=== PATIENT | male | born 1980 | race Caucasian/White ===

== ENCOUNTER 2017-12-19 05:49 | Emergency (ER) | payer MEDICAID ==
[~2017-12-19] VITALS: Ht 167.6 cm; Wt 96.2 kg
[~2017-12-19 05:49] MED LIST: ALB0.5UD IH; IBUP-1985 PO; IBUP-1986 PO; NAPR-1154 PO; ONDA4TAB6 PO
[2017-12-19 06:11] VITALS: BP 126/87
[2017-12-19] MEDS ORDERED: HYDR-569 PO (16:08)
[2017-12-19] MEDS ORDERED: DOXY100C2 PO (16:08)
== END 2017-12-19 11:26 | disposition left against medical advice (07) ==
LOC: ER 05:49
DX: L02.426 Furuncle of left lower limb (principal); Z53.21 Procedure and treatment not carried out due to patient leaving prior to being seen by health care provider
CPT/HCPCS: A6266; A6449

== ENCOUNTER 2017-12-19 14:37 | Emergency (ER) | payer MEDICAID ==
[~2017-12-19] VITALS: Ht 167.6 cm; Wt 94.0 kg
[2017-12-19 14:42] VITALS: BP 143/88
[2017-12-19] MEDS ORDERED: LIDOcaine 1.5% w/epinephrine 1:200,000 5ml ampul IJ ONE (15:25)
[2017-12-19] MEDS ORDERED: doxycycline hyclate 100mg tablet.DR PO ONE (16:05)
[2017-12-19] MEDS ORDERED: HYDROcodone/acetaminophen 10/325mg tab PO ONE (16:05)
[2017-12-19] MEDS ORDERED: DOXY100C2 PO (16:08)
[2017-12-19] MEDS ORDERED: HYDR-569 PO (16:08)
== END 2017-12-19 16:20 | disposition home or self-care (01) ==
LOC: ER 14:38
DX: L02.31 Cutaneous abscess of buttock (principal); J45.909 Unspecified asthma, uncomplicated; Z87.442 Personal history of urinary calculi; Z88.1 Allergy status to other antibiotic agents; Z88.2 Allergy status to sulfonamides
CPT/HCPCS: 10060; 87070; 87077; 87186; 99284; A6449; J3490; 99283

== ENCOUNTER 2018-07-06 09:12 | Emergency (ER) | payer MEDICAID ==
[~2018-07-06] VITALS: Ht 167.6 cm; Wt 74.0 kg
[~2018-07-06 09:12] MED LIST changes: +HYDR-569 PO
[2018-07-06 09:15] VITALS: BP 126/76
[2018-07-06] MEDS ORDERED: IBUP-1984 PO (09:25)
[2018-07-06] MEDS ORDERED: AMOX500C2 PO (09:25)
[2018-07-06] MEDS ORDERED: ACET-2615 PO (09:25)
[2018-07-06] MEDS ORDERED: famotidine 20mg tablet PO ONE (09:30)
[2018-07-06] MEDS ORDERED: HYDROcodone/acetaminophen 5mg/325mg tablet PO ONE (09:30)
[2018-07-06] MEDS ORDERED: ondansetron 4mg rapidly disintigrating tab PO ONE (09:30)
[2018-07-06] MEDS ORDERED: pantoprazole 40mg Tablet.DR PO ONE (09:30)
[2018-07-06] MEDS ORDERED: ONDA8TAB9 PO (09:33)
[2018-07-06] MEDS ORDERED: PANT-47 PO (09:33)
[2018-07-06] MEDS ORDERED: HYDR-3965 PO (09:33)
== END 2018-07-06 09:44 | disposition home or self-care (01) ==
LOC: ER 09:12
DX: S02.5XXB Fracture of tooth (traumatic), initial encounter for open fracture (principal); J45.909 Unspecified asthma, uncomplicated; Z87.442 Personal history of urinary calculi; Z98.890 Other specified postprocedural states; Z56.0 Unemployment, unspecified; Z88.6 Allergy status to analgesic agent; Z88.1 Allergy status to other antibiotic agents; Z88.8 Allergy status to other drugs, medicaments and biological substances; Z79.899 Other long term (current) drug therapy; X58.XXXA Exposure to other specified factors, initial encounter; Y93.89 Activity, other specified; Y92.89 Other specified places as the place of occurrence of the external cause; Y99.9 Unspecified external cause status
CPT/HCPCS: 99284

== ENCOUNTER 2019-05-28 08:02 | Emergency (ER) | payer MEDICAID ==
[~2019-05-28] VITALS: Ht 167.6 cm; Wt 88.6 kg
[~2019-05-28 08:02] MED LIST changes: +HYDR-4383 PO; -HYDR-569 PO; +ONDA8TAB9 PO; +PANT-47 PO
[2019-05-28 08:40] LABS: BASOPHILS # (AUTO) 0.1 X10'3 (0-0.2); EOSINOPHILS # (AUTO) 0.7 X10'3 (0-0.9); EOSINOPHILS % (AUTO) 7.5 % (0-6); HEMATOCRIT 46.7 % (42.0-52.0); HEMOGLOBIN 15.8 g/dl (14.0-17.9); LYMPHOCYTES # (AUTO) 1.9 X10'3 (1.1-4.8); LYMPHOCYTES % (AUTO) 21.5 % (21-51); MEAN CORPUSCULAR HEMOGLOBIN 30.9 PG (27.0-31.0); MEAN CORPUSCULAR HGB CONC 33.9 g/dL (33.0-36.5); MEAN CORPUSCULAR VOLUME 91.1 FL (78-98); MEAN PLATELET VOLUME 8.2 FL (7.4-10.4); MONOCYTES # (AUTO) 0.5 X10'3 (0-0.9); NEUTROPHILS # (AUTO) 5.7 X10'3 (1.8-7.7); PLATELET COUNT 364 X10'3 (140-440); RED BLOOD COUNT 5.13 X10'6 (4.70-6.10); RED CELL DISTRIBUTION WIDTH 12.6 % (11.5-14.5); WHITE BLOOD COUNT 8.9 X10'3 (4.5-11.0)
[2019-05-28 08:54] LABS: ALANINE AMINOTRANSFERASE 26 U/L (12-78); ALBUMIN 3.9 G/DL (3.4-5.0); ALKALINE PHOSPHATASE 61 IU/L (46-116); ANION GAP 9 (8-16); ASPARTATE AMINO TRANSFERASE 12 U/L (10-37); BILIRUBIN,TOTAL 0.4 MG/DL (0.1-1.0); BLOOD UREA NITROGEN 10 MG/DL (7-18); BUN/CREATININE RATIO 12.2 (5.4-32.0); CALCIUM 8.6 MG/DL (8.5-10.1); CHLORIDE 104 MMOL/L (99-107); CREATININE 0.82 MG/DL (0.60-1.10); GLUCOSE 96 MG/DL (70-104); LIPASE 50 U/L (73-393); POTASSIUM 3.9 MMOL/L (3.5-5.1); SODIUM 140 MMOL/L (135-145); TOTAL CARBON DIOXIDE 27.5 MMOL/L (24-32); TOTAL PROTEIN 7.9 G/DL (6.4-8.2); eGFR > 90 ML/MIN
[2019-05-28] MEDS ORDERED: ondansetron 4mg rapidly disintigrating tab PO ONE (09:35)
[2019-05-28] MEDS ORDERED: acetaminophen 325mg tablet PO ONE (09:35)
[2019-05-28 09:54] LABS: CLARITY,URINE CLEAR (Clear); COLOR,URINE YELLOW (Yellow); GLUCOSE, URINE NEGATIVE (Neg); KETONES,URINE NEGATIVE (Neg); LEUKOCYTE ESTERASE ,URINE NEGATIVE (Neg); NITRITES, URINE NEGATIVE (Neg); OCCULT BLOOD,URINE LARGE (Neg); PH,URINE 8.5 (4.8-8.0); PROTEIN,URINE TRACE mg/dl (Neg)
[2019-05-28 09:55] LABS: UA COLLECTION TYPE CLN CATCH MIDSTREAM
[2019-05-28 10:00] LABS: BACTERIA,URINE NONE SEEN /HPF (Neg); MUCUS STRANDS FEW /LPF (Neg); RBC,URINE 20-50 /HPF (0-2); SQUAMOUS EPITHELIAL CELL,UR FEW /LPF (FEW); WBC,URINE 0-4 /HPF (0-4)
[2019-05-28 10:06] LABS: URINE AMPHETAMINE SCREEN NEGATIVE (Neg); URINE BARBITUATE SCREEN NEGATIVE (Neg); URINE BENZODIAZEPINES SCREEN NEGATIVE (Neg); URINE CANNABINOID SCREEN NEGATIVE (Neg); URINE COCAINE SCREEN NEGATIVE (Neg); URINE METHADONE SCREEN NEGATIVE (Neg); URINE OPIATE SCREEN POSITIVE (Neg); URINE PHENCYCLIDINE SCREEN NEGATIVE (Neg)
[2019-05-28] MEDS ORDERED: HYDROcodone/acetaminophen 5mg/325mg tablet PO ONE (10:25)
== END 2019-05-28 11:14 | disposition home or self-care (01) ==
LOC: ER 08:02
DX: R31.9 Hematuria, unspecified (principal); R10.12 Left upper quadrant pain; R11.2 Nausea with vomiting, unspecified; M54.5 Low back pain; J45.909 Unspecified asthma, uncomplicated; F10.99 Alcohol use, unspecified with unspecified alcohol-induced disorder; Z98.890 Other specified postprocedural states; Z87.442 Personal history of urinary calculi; Z56.0 Unemployment, unspecified; Z88.2 Allergy status to sulfonamides; Z88.8 Allergy status to other drugs, medicaments and biological substances; Z88.1 Allergy status to other antibiotic agents; Z79.899 Other long term (current) drug therapy; Y90.9 Presence of alcohol in blood, level not specified
CPT/HCPCS: 36415; 74176; 80053; 80305; 81001; 83690; 85025; 85610; 99284; J2405

== ENCOUNTER 2019-11-01 09:00 | Emergency (ER) | payer MEDICAID ==
[~2019-11-01] VITALS: Ht 172.7 cm; Wt 89.7 kg
[2019-11-01 09:03] VITALS: BP 132/87
--- NOTE | 2019-11-01 09:56 | NUR ---
PATIENT PROVIDED LIST OF MEDICAL DENTAL PROVIDERS
[2019-11-01] MEDS ORDERED: PENI500T2 PO (10:24)
[2019-11-01] MEDS ORDERED: IBUP-1984 PO (10:25)
== END 2019-11-01 10:40 | disposition home or self-care (01) ==
LOC: ER 09:00
DX: K04.7 Periapical abscess without sinus (principal); J45.909 Unspecified asthma, uncomplicated; F17.200 Nicotine dependence, unspecified, uncomplicated; Z98.890 Other specified postprocedural states; Z56.0 Unemployment, unspecified; Z88.1 Allergy status to other antibiotic agents; Z88.2 Allergy status to sulfonamides; Z88.8 Allergy status to other drugs, medicaments and biological substances; Z79.2 Long term (current) use of antibiotics; Z79.899 Other long term (current) drug therapy
CPT/HCPCS: 99283